=== PATIENT | female | born 1935 | race Caucasian/White ===

== ENCOUNTER → 2020-12-15 00:27 | Outpatient (CLI) | payer MEDICARE, SELFPAY ==
[2020-12-15 18:03] LABS: SARS-CoV-2 RNA PCR Negative
== END ==
PROVIDERS: PCP Family Medicine Adolescent Medicine; Visit Provider Internal Medicine Critical Care Medicine
DX: Z20.822 Contact with and (suspected) exposure to COVID-19 (principal)
CPT/HCPCS: C9803; U0003; U0005

== ENCOUNTER 2020-12-18 12:44 | Outpatient (CLI) | payer MEDICARE, SELFPAY ==
--- NOTE | 2020-12-19 18:50 | WPDSLEEPSTUD ---
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 She does not awaken at night with heartburn, belching or coughing. She does not awaken from sleep feeling short of breath. She denies having trouble sleep with a cold, gasping for breath at night, having breathing problems at night witnessed by others. She does not sweat excessively at night or noticed her heart pounding irregularly at night. She does not fall asleep in the day, still does not fall asleep involuntarily or while driving. She does not have loss of muscle tone was strong emotion. She does not have daytime difficulties due to excessive sleepiness. She does not feel paralyzed on waking or falling asleep and does not have vivid dreamlike scenes upon awakening or falling asleep. She is not afraid to go to sleep. She does not have nightmares. She does not remember her dreams. She does not have racing thoughts. Occasionally she feels sad or depressed. She does not feel anxious. She does not have muscular tension or notice parts of her body jerking. She does not kick at night. She does not have crawling or aching feelings in her legs. She has not have any kind of leg pain at night. She denies morning jaw pain. She does not grind her teeth during sleep. She is not bothered by pain during the day or awakened by pain at night. She occasionally wakes up feeling stiff in the morning. She does not wake up with sore or achy muscles but occasionally wakes up with pain in the neck and spine. Normal bedtime is 10:00 p.m. falling asleep within 20 minutes waking at 6:30 a.m.. She does not wake up during the night. On the weekends she goes to bed between 630 or 7:00 p.m. and wakes at 6:30 a.m.. She estimates getting 6-7 hours of sleep at night. She does not take naps. A short nap is not refreshing. She feels good in the morning. Habits: Tobacco 30 years ago. Caffeine 2 cups per day. FORMERLY [facility] Past Medical History Medical History (Updated 12/24/20 @ 11:07 by Breanna Crawley MD) Asthma Coronary artery disease Dyslipidemia Social History Social History (Updated 12/23/20 @ 13:03 by Breanna Crawley MD) Smoking status: Former smoker Alcohol intake: never Substance use: never Medications Home Medications Medication Instructions Recorded Confirmed Type alendronate 70 mg tablet 70 mg PO WEEKLY 10/17/19 10/27/20 History atorvastatin 10 mg tablet 10 mg PO DAILY 10/17/19 10/27/20 History furosemide 20 mg tablet 20 mg PO QAM 10/17/19 10/27/20 History gabapentin 600 mg tablet 600 mg PO TID 10/17/19 10/27/20 History glucosamine sulfate 500 mg tablet 500 mg PO BID 10/17/19 10/27/20 History levothyroxine 88 mcg capsule 88 mcg PO DAILY 10/17/19 10/27/20 History lorazepam 1 mg tablet 1 mg PO BID PRN 10/17/19 10/27/20 History iuyndrzt-sgj-odksb acid 0.4 1 tablet PO DAILY 10/17/19 10/27/20 History mg-lycopene 300 mcg-lutein 250 mcg tablet nitroglycerin 0.4 mg sublingual 0.4 mg SUBLINGUAL Q5M PRN 10/17/19 10/27/20 History tablet pantoprazole 40 mg tablet,delayed 40 mg PO QAM 10/17/19 10/27/20 History release acidophilus 100 million cap PO 10/18/19 10/27/20 History cell-pectin, citrus 10 mg capsule aspirin 81 mg tablet,delayed 81 mg PO DAILY 10/18/19 10/27/20 History release calcium carbonate 600 mg calcium 600 mg PO DAILY 10/18/19 10/27/20 History (1,500 mg) tablet clopidogrel 75 mg tablet 75 mg PO DAILY 10/18/19 10/27/20 History fluticasone propionate 50 2 spray NASAL DAILY #15.8 m
[2020-12-24 10:27] VITALS: BMI 26.2
== END 2020-12-18 12:45 ==
LOC: ANHCSM 01-15 12:44
PROVIDERS: PCP Family Medicine Adolescent Medicine; Visit Provider Internal Medicine Cardiovascular Disease
DX: G47.33 Obstructive sleep apnea (adult) (pediatric) (principal)
CPT/HCPCS: 95810; 95811; 99202; G0463

== ENCOUNTER → 2021-04-08 14:31 | Outpatient (CLI) | payer MEDICARE, SELFPAY ==
--- NOTE | ~2021-04-08 | XR_ITS ---
EXAMINATION: XR foot RT min 3V DATE: 04/08/2021 14:53 INDICATION: Right foot pain. TECHNIQUE: 3 views of right foot were obtained. COMPARISON: Right foot radiographs 06/20/2017 FINDINGS: There is mild hallux valgus. No fracture. There is mild osteoarthritis of first metatarsoph alangeal joint and mild to moderate osteoarthritis of some of the interphalangeal joints. There is se [place] osteoarthritis of fifth proximal interphalangeal joint. There are enthesophytes at the posterior and plantar aspects of calcaneal tuberosity. IMPRESSION: 1. Polyarticular osteoarthritis. 2. Mild hallux valgus. Reviewed, dictated and finalized at location A.
== END ==
PROVIDERS: PCP Family Medicine Adolescent Medicine; Visit Provider Physician Assistant
DX: M79.671 Pain in right foot (principal); M19.071 Primary osteoarthritis, right ankle and foot; M20.11 Hallux valgus (acquired), right foot
CPT/HCPCS: 73630